=== PATIENT | female | born 2000 | race Caucasian/White ===

== ENCOUNTER 2021-05-11 17:57 | Emergency (ER) | payer OTHER, BC ==
[2021-05-11 19:38] LABS: HEMOGLOBIN 14.7 gm/dl (12.3-15.3); RED BLOOD COUNT 4.85 M/UL (4.00-5.10)
[2021-05-11 19:56] LABS: BUN/CREATININE RATIO 12 (0-10)
== END 2021-05-11 21:16 | disposition home or self-care (01) ==
LOC: ER1 17:57
PROVIDERS: Family Medicine
DX: R10.32 Left lower quadrant pain (principal); V49.40XA Driver injured in collision with unspecified motor vehicles in traffic accident, initial encounter; Y92.410 Unspecified street and highway as the place of occurrence of the external cause
CPT/HCPCS: 70450; 71260; 72125; 80053; 83690; 84703; 85025; 99284; Q9967

== ENCOUNTER → 2021-05-13 | Outpatient (CLI) | payer BC | LOC: KOH-I 10:31 | DX: M53.3 Sacrococcygeal disorders, not elsewhere classified (principal) | CPT/HCPCS: 72220 ==

== ENCOUNTER → 2021-07-31 | Outpatient (CLI) | payer BC | LOC: KOH-I 15:21 | DX: M25.561 Pain in right knee (principal) | CPT/HCPCS: 73562 ==